=== PATIENT | female | born 1945 | race Caucasian/White ===

== ENCOUNTER 2017-01-29 09:55 | Observation (INO) | payer MEDICARE, OTHER ==
[~2017-01-29] VITALS: Ht 170.2 cm; Wt 58.9 kg
[2017-01-29] MEDS ORDERED: ZOLO100T PO (10:08)
[2017-01-29] MEDS ORDERED: ZYRT10CA PO (10:08)
[2017-01-29] MEDS ORDERED: FLON1SPR (10:08)
[2017-01-29] MEDS ORDERED: CALC600T21 PO (10:08)
[2017-01-29] MEDS ORDERED: LEVO50TA5 PO (10:08)
[2017-01-29 10:53] LABS: BASO # 0.1 K/mm3 (0.0-0.2); BASO % 1.8 % (0.0-1.0); EOS # 0.1 K/mm3 (0.0-0.50); EOS % 3.2 % (0.0-3.0); LARGE UNSTAINED CELL # 0.1 K/mm3 (0.0-0.4); LARGE UNSTAINED CELL % 3.2 % (0.0-4.0); LYMPH # 1.6 K/mm3 (1.5-4.5); LYMPH % 38.1 % (24.0-44.0); MEAN CORPUSCULAR HEMOGLOBIN 30.1 pg (27.0-33.0); MEAN CORPUSCULAR HGB CONC 32.2 g/dl (32.0-36.5); MEAN CORPUSCULAR VOLUME 93.5 fl (80.0-96.0); MONO # 0.3 K/mm3 (0.0-0.8); MONO % 7.3 % (0.0-5.0); NEUTROPHILS # 1.8 K/mm3 (1.8-7.7); NEUTROPHILS % 46.4 % (36.0-66.0); PLATELET COUNT, AUTOMATED 327 k/mm3 (150-450); RED CELL DISTRIBUTION WIDTH 12.6 % (11.5-14.5); WHITE BLOOD COUNT 3.9 K/mm3 (4.0-10.0)
[2017-01-29 10:58] LABS: INR 1.04
[2017-01-29 11:09] LABS: ANION GAP 5 MEQ/L (8-16); BLOOD UREA NITROGEN 18 MG/DL (7-18); CARBON DIOXIDE LEVEL 28 MEQ/L (21-32); CHLORIDE LEVEL 107 MEQ/L (98-107); CREATININE FOR GFR 0.82 MG/DL (0.55-1.02); FREE T4 0.79 NG/DL (0.76-1.46); GLOMERULAR FILTRATION RATE > 60.0 (>45); GLUCOSE, FASTING 93 MG/DL (80-110); POTASSIUM SERUM 4.4 MEQ/L (3.5-5.1); SODIUM LEVEL 140 MEQ/L (136-145)
--- NOTE | 2017-01-29 11:19 | REP ---
Noncontrast brain CT: History: CVA. 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 Bone window settings demonstrate an intact bony calvarium. There is mild vascular calcification in the distal carotid arteries bilaterally. There is minimal diffuse cerebral atrophy. There is no evidence of intracranial hemorrhage. Box-white differentiation pattern is normal above and below the tentorium. There is no extra-axial fluid collection, evidence of infarction, or midline shift. Impression: Mild vascular calcification and minimal diffuse atrophy. No acute intracranial abnormality. Signed by Luis E Mosley MD 01/29/2017 12:59 P
--- NOTE | 2017-01-29 11:24 | REP ---
Portable chest x-ray: Single view. History: CVA. Findings: EKG monitoring electrodes overlie the chest. The lungs are symmetrically aerated and clear. The pleural angles are sharp. Heart size is normal. The aorta is slightly tortuous. There is an old healed rib fracture on the right. Impression: No active disease. Signed by Luis E Mosley MD 01/29/2017 01:00 P
--- NOTE | 2017-01-29 12:51 | REP ---
MR angiography the brain without contrast: History: TIA. Technique: 3-D [id number] MR angiography of the brain is acquired in the usual fashion and maximal intensity projection images were generated in rotational format about the vertical and horizontal axes. In addition, source axial T1-weighted images are viewed in cine mode. MR angiographic findings: The distal vertebral arteries are patent and co-dominant. Basilar artery is a little tortuous but widely patent. The posterior cerebral and superior cerebellar vessels are normal and symmetric. The distal internal carotid arteries are unremarkable. Anterior and middle cerebral arteries appear intact. There is no visible gupta aneurysm or arteriovenous malformation. Impression: Unremarkable MR angiography the brain. Signed by Luis E Mosley MD 01/29/2017 12:42 P
--- NOTE | 2017-01-29 12:52 | REP ---
MRI brain without contrast: History: TIA . Comparison study: Comparison head CT study is from earlier this date. Technique: Axial and sagittal imaging planes are utilized for T1 and T2-weighted scans. Sequences include spin-echo, fast spin echo, FLAIR, and diffusion weighted sequences. MRI findings: No bony calvarial lesion is seen. Craniocervical junction and upper cervical cord are normal in appearance. There is no MR evidence of significant paranasal sinus disease. No intraorbital abnormality is seen. The lateral, third, and fourth ventricles are normal in size and position. There is minimal diffuse atrophy. Box-white differentiation pattern is intact above and below the tentorium. There is no evidence of intracranial hemorrhage. No mass, infarction, extra-axial fluid collection or midline shift is seen. No abnormal white matter lesion is seen. Impression: Minimal diffuse atrophy, otherwise negative noncontrast brain MRI study. Signed by Luis E Mosley MD 01/29/2017 12:43 P
[2017-01-29] MEDS ORDERED: ASPIRIN 325 MG TAB PO ONE (13:45)
[2017-01-29] MEDS ORDERED: BACITAB3 PO (14:07)
[2017-01-29] MEDS ORDERED: BIOT10005 PO (14:07)
[2017-01-29] MEDS ORDERED: CALCTAB43 PO (14:07)
[2017-01-29] MEDS ORDERED: LORA10TA2 PO (14:07)
[2017-01-29 15:17] LABS: CHOLESTEROL LEVEL 241 MG/DL (<200); TRIGLYCERIDES LEVEL 85 MG/DL (<150)
--- NOTE | 2017-01-29 15:30 | HPE ---
DATE OF ADMISSION: 01/29/2017 PRIMARY CARE PROVIDER: Dr. Brady in [place] CHIEF COMPLAINT: Dizziness and double vision. HISTORY OF PRESENT ILLNESS: The patient is a 71-year-old female who came from [place] to [place] for camping. This morning, the patient started having dizziness when the patient was in the restroom. Later, when the patient tried to prepare a meal, she was making eggs in a cake quigley which is not normal for her, and the patient continued to feel dizzy for at least 10 minutes. The was around the whole time. He brought her to the couch for rest and the patient fell asleep immediately for 30-45 minutes. The patient did not have any significant improvement of her symptoms so the brought the patient to [facility] for further evaluation. When the patient was in route, the patient started having double vision and a frontal headache lasting for a few minutes and resolved spontaneously when the patient arrived to the emergency room. The patient described the dizziness as the room is spinning. The patient had a similar episode when the patient had severe allergy symptoms. ALLERGIES: SEASONAL ALLERGIES. PAST MEDICAL HISTORY: 1. Hypothyroidism from partial thyroidectomy. 2. 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 3. Recurrent diverticulitis (on average occurs monthly). PAST SURGICAL HISTORY: 1. Partial thyroidectomy. 2. Right-sided lumpectomy. SOCIAL HISTORY: Denies smoking. The patient drinks wine and hard liquor a few days a week. The patient denies any recreational drug use. The patient is a full code. HOME MEDICATIONS: - Biotin 1000 mcg by mouth daily - calcium/vitamin D supplement one tablet by mouth twice a day - Flonase one spray per nostril twice a day - Bacid one tablet by mouth twice a day - Synthroid 50 mcg by mouth daily - loratadine 10 mg by mouth daily as needed for allergies - Zoloft 100 mg by mouth at bedtime REVIEW OF SYSTEMS: GENERAL: No fever. No chills. HEENT: Experienced double vision for a few minutes, resolved spontaneously when patient was driving to [facility]. The patient does complain about sinus fullness from current active allergies. CARDIOVASCULAR: No chest pain. No palpitations. RESPIRATORY: No shortness of breath. No cough. No sputum production. GASTROINTESTINAL: No nausea. No vomiting. No abdominal pain. No diarrhea. MUSCULOSKELETAL: No numbness. No joint pain or muscle pain. NEUROLOGICAL: The patient does have a complaint of frontal sinus headache. The patient also had dizziness in the morning which improved when the patient arrived to the emergency room. OBJECTIVE: VITAL SIGNS: Temperature is 97.8, pulse is 56, respiratory rate 16, blood pressure is 129/74, pulse oximetry is 99% on room air. GENERAL: No sign of acute distress, alert and oriented times three. HEENT: Positive tenderness to palpation of the frontal sinus bilaterally. No maxillary sinus tenderness. Normocephalic, atraumatic. There is some minor swelling in the inferior eyelid. CARDIOVASCULAR: Positive S1, S2. Regular rate. LUNGS: Clear to auscultation bilaterally. ABDOMEN: Soft, nontender, nondistended. Bowel sounds present. No rebound. No guarding. EXTREMITIES: No edema. No cyanosis. NEUROLOGICAL: The patient is able to perform subtracting 7 from 100. The patient is able to remain three objects. Cranial nerves II-XII are grossly intact. Sensation to fine touch grossly intact. Muscle strength 5/5 throughout. LABORATORY DATA: WBC is 3.9, hemoglobin 12.7, hematocrit 39.6, platelet count is 327. Sodium 140, potassium 4.4, chloride 107, carbon dioxide 28, BUN 18, creatinine 0.82, GFR greater than 60, fasting glucose 93, calcium 8, total CK is 104, troponin I is less than 0.02, TSH 2.4, free T4 0.79. PT is 13.7, INR is 1.04. IMAGING STUDIES: CT of the head without contrast shows mild vascular calcification and minimal diffuse atrophy. No acute intracranial abnormality. Chest x-ray shows no active disease. MRA of the brain without contrast shows unremarkable MRA of the brain. MRI of the brain without contrast shows minimal diffuse atrophy. Otherwise negative noncontrast brain MRI study. ASSESSMENT AND PLAN: 1. Dizziness. The patient will be admitted to the progressive care unit (PCU) under observation status. Neurology is consulted. There is a concern for rule out transient ischemic attack (TIA). The patient received aspirin 325 in the emergency room. 2. Frontal sinus tenderness. Possibly due to seasonal allergies. We will try Zyrtec. 3. Depression. Continue with Zoloft. 4. Hypothyroidism from partial thyroidectomy. Continue Synthroid. Thyroid-stimulating hormone (TSH) and free T4 within normal range. 5. Deep vein thrombosis (DVT) prophylaxis. The patient is on heparin.
[2017-01-29 16:00] VITALS: BP 119/98
[2017-01-29] MEDS: THIAMINE 100 MG TAB PO SCH (16:37)
[2017-01-29] MEDS: MULTIVITAMINS/MINERALS THERAP 1 TAB PO SCH (16:37)
[2017-01-29] MEDS: FOLIC ACID 1 MG TAB PO SCH (16:37)
[2017-01-29] MEDS: HEPARIN SOD (PORCINE) 5000 UNITS/ML VIAL SC SCH ×2 (16:38→21:54)
[2017-01-29 17:45] VITALS: BP 139/73
[2017-01-29 18:00] VITALS: BP 139/73
[2017-01-29 20:00] VITALS: BP 132/87
[2017-01-29] MEDS ORDERED: SERTRALINE 100 MG TAB PO SCH (21:00)
[2017-01-29] MEDS: LACTOBACILLUS ACIDOPHILUS CAP (BACID) PO SCH (21:53)
[2017-01-29] MEDS: FLUTICASONE PROP 0.05% NASAL SPRAY 16 GM (FLONASE) SCH (21:53)
[2017-01-29] MEDS: CETIRIZINE (ZyrTEC) 10 MG TAB PO SCH (21:54)
[2017-01-30] VITALS: BP 99/64
[2017-01-30 04:00] VITALS: BP 107/72
[2017-01-30 05:13] LABS: MEAN CORPUSCULAR HEMOGLOBIN 30.6 pg (27.0-33.0); MEAN CORPUSCULAR VOLUME 92.6 fl (80.0-96.0); RED CELL DISTRIBUTION WIDTH 12.6 % (11.5-14.5); WHITE BLOOD COUNT 4.1 K/mm3 (4.0-10.0)
[2017-01-30 05:29] LABS: ANION GAP 6 MEQ/L (8-16); BLOOD UREA NITROGEN 13 MG/DL (7-18); CALCIUM LEVEL 7.7 MG/DL (8.8-10.2); CARBON DIOXIDE LEVEL 26 MEQ/L (21-32); CHLORIDE LEVEL 109 MEQ/L (98-107); GLOMERULAR FILTRATION RATE > 60.0 (>45); GLUCOSE, FASTING 93 MG/DL (80-110); POTASSIUM SERUM 3.8 MEQ/L (3.5-5.1); SODIUM LEVEL 141 MEQ/L (136-145)
[2017-01-30] MEDS: HEPARIN SOD (PORCINE) 5000 UNITS/ML VIAL SC SCH (05:49)
[2017-01-30] MEDS ORDERED: LEVOTHYROXINE 0.05 MG TAB (50 MCG) PO SCH (06:00)
[2017-01-30 08:00] VITALS: BP 114/77
[2017-01-30] MEDS: LACTOBACILLUS ACIDOPHILUS CAP (BACID) PO SCH (08:47)
[2017-01-30] MEDS: CETIRIZINE (ZyrTEC) 10 MG TAB PO SCH (08:47)
[2017-01-30] MEDS: MULTIVITAMINS/MINERALS THERAP 1 TAB PO SCH ×2 (08:48→08:50)
[2017-01-30] MEDS: FOLIC ACID 1 MG TAB PO SCH (08:48)
[2017-01-30] MEDS: THIAMINE 100 MG TAB PO SCH (08:48)
[2017-01-30] MEDS: FLUTICASONE PROP 0.05% NASAL SPRAY 16 GM (FLONASE) SCH (08:48)
[2017-01-30] MEDS ORDERED: ASPIRIN 81 MG ENTERIC TAB PO SCH (09:00)
--- NOTE | 2017-01-30 09:47 | ECGEPIP ---
Stationary ECG Study [facility] - ED Test Date: 2017-01-29 Pat Name: CODI TORREZ Department: Room: - Gender: F Nutrition Manager: JT : 1945 Requested By: Roger Gill Order Number: [id number] Reading MD: Madeleine Yeboah Measurements Intervals Marshall Rate: 56 P: 56 MD: 151 QRS: 32 QRSD: 90 T: 28 QT: 414 QTc: 400 Interpretive Statements SINUS BRADYCARDIA NO PRIOR FOR COMPARISON Electronically Signed On 01-30-2017 9:46:39 EDT by Madeleine Yeboah
[2017-01-30] MEDS ORDERED: ASPI81TAEC PO (10:28)
[2017-01-30] MEDS ORDERED: LIPI20TA PO (10:28)
[2017-01-30] MEDS ORDERED: SALI0.653 (10:28)
[2017-01-30] MEDS ORDERED: ATORVASTATIN 20 MG TAB PO SCH (21:00)
--- NOTE | 2017-01-31 04:44 | DSES ---
DATE OF ADMISSION: 01/29/2017 DATE OF DISCHARGE: 01/30/2017 PRIMARY CARE PROVIDER: Treva Brady. FINAL DIAGNOSIS: Transient ischemic attack (TIA) with lightheadedness and diplopia. HISTORY OF PRESENT ILLNESS: This is a 71-year-old female patient came to [place] from [place] for camping. The morning of admission, patient had started having dizziness when she was in rest room and later the patient tried to prepare for meal, was making egg in a cake quigley, which is not normal for her and she also continued to have dizziness for at least 10 minutes and was around the whole time and brought her to a couch for rest and patient fell asleep immediately for about 30-45 minutes and the patient did not have any significant improvement in her symptom, so the brought the patient to [facility]. En route, patient reported also diplopia, double vision with frontal headache for a few minutes and resolved spontaneously after arriving to the emergency room. Patient baseline is very fit, able to ambulate for miles. Denies any chest pain, pressure or discomfort. HOSPITAL COURSE: Patient admitted to the hospital. Neurology was initially consulted by emergency room. MRI/MRA of the brain was negative. The patient was able to ambulate. Telemetry monitoring was observed. Aspirin was given. Statin was given. Case was discussed with neurologist. Patient can be discharged as per neurologist. Patient able to ambulate. Case discussed with Dr. Rodriguez. Recommended discharging with aspirin, statin. Patient is comfortable. Tolerating oral. Ready for discharge for further care. VITAL SIGNS: Temperature 97.5, pulse 60, respirations 18, blood pressure 114/77, pulse oximetry 97% on room air. LABORATORY: WBC 4.1, hemoglobin and hematocrit 12.4/37.4, platelets 285. Chemistry: Sodium 141, potassium 3.8, chloride 109, bicarbonate 26, BUN 13, creatinine 0.8. DISCHARGE MEDICATIONS: - aspirin 81 mg by mouth daily - Lipitor 20 mg by mouth nightly - saline nasal spray twice a day as needed Patient's home medications: - biotin 1000 mcg by mouth daily - calcium/vitamin D one tablet by mouth twice a day - Flonase nasal spray twice a day - Bacid one tablet by mouth twice a day - Synthroid 50 mcg by mouth daily - loratadine 10 mg by mouth daily as needed - Zoloft 100 mg by mouth nightly DISCHARGE INSTRUCTIONS: Patient is instructed to followup with primary care provider in 7 days. Neurology in 1-2 weeks. Return to the hospital if symptoms worsen. Patient is aware that she is at high risk for CVA given she had symptoms of transient ischemic attack (TIA).
== END 2017-01-30 11:09 | disposition home or self-care (01) ==
LOC: M ED 11:39 → M ED INP 14:34 → M PCU 18:04
PROVIDERS: ADMIT Internal Medicine; ATTEND Hospitalist
DX: G45.9 Transient cerebral ischemic attack, unspecified (principal); R42 Dizziness and giddiness; H53.2 Diplopia; E03.9 Hypothyroidism, unspecified; K57.32 Diverticulitis of large intestine without perforation or abscess without bleeding; Z79.899 Other long term (current) drug therapy
CPT/HCPCS: 36415; 70450; 70544; 70551; 71010; 80048; 80061; 82550; 82553; 84439; 84443; 84484; 85025; 85027; 85610; 85730; 86850; 86900; 86901; 93005; 93041; 94760; 96372; 99285; G0378

== ENCOUNTER → 2019-04-27 | Outpatient (REF) | payer MEDICARE, OTHER ==
[~2019-04-27] MED LIST: ASPI81TAEC PO; BACITAB PO; BIOT10008 PO; CALC600T60 PO; CALCTAB74 PO; FLON1SPR; LEVO50TA5 PO; LIPI20TA PO; LORA10TA3 PO; SALI0.6528; ZOLO100T PO; ZYRT10CA PO
== END ==
LOC: M LAB REF 19:19
PROVIDERS: ATTEND Physician Assistant
DX: N39.0 Urinary tract infection, site not specified (principal)

== ENCOUNTER 2020-06-14 14:58 | Emergency (ER) | payer MEDICARE, OTHER ==
[~2020-06-14] VITALS: Ht 170.2 cm; Wt 63.0 kg
--- NOTE | 2020-06-14 15:57 | REPVR ---
PROCEDURE INFORMATION: Exam: XR Left Elbow Exam date and time: 06/14/2020 3:34 PM Age: 75 years old Clinical indication: Injury or trauma; Fall; Initial encounter; Sprain or strain; Elbow; Left TECHNIQUE: Imaging protocol: XR Left elbow. Views: Frontal, lateral, and oblique views. COMPARISON: No relevant prior studies available. FINDINGS: Bones/joints: Partial avulsion of the distal humeral lateral epicondyle, with mild distraction of a 6.7 mm fragment. Small joint effusion. Soft tissues: Mild lateral and antecubital fossa soft tissue swelling. IMPRESSION: 1. Partial avulsion distal humeral lateral epicondyle. 2. Small joint effusion. Electronically signed by: Saji Marcial On 06/14/2020 15:57:07 PM
--- NOTE | 2020-06-14 15:57 | REPVR ---
PROCEDURE INFORMATION: Exam: XR Left Shoulder Exam date and time: 06/14/2020 3:27 PM Age: 75 years old Clinical indication: Injury or trauma; Fall; Initial encounter; Sprain or strain; Shoulder; Left TECHNIQUE: Imaging protocol: XR Left shoulder. Views: AP internal and external rotation views, and a scapular Y view of the left shoulder. COMPARISON: No relevant prior studies available. FINDINGS: Bones/joints: Normal. Soft tissues: Normal. IMPRESSION: No acute bony injury identified. Electronically signed by: Saji Marcial On 06/14/2020 15:57:36 PM
[2020-06-14] MEDS ORDERED: NORC1TAB7 PO (18:13)
[2020-06-14] MEDS ORDERED: MIRA3350 PO (18:13)
[2020-06-14 18:22] VITALS: BP 114/77
== END 2020-06-14 18:24 | disposition home or self-care (01) ==
LOC: M ED 14:58
DX: S42.442A Displaced fracture (avulsion) of medial epicondyle of left humerus, initial encounter for closed fracture (principal); W10.8XXA Fall (on) (from) other stairs and steps, initial encounter; Y92.9 Unspecified place or not applicable; Y93.9 Activity, unspecified; Y99.9 Unspecified external cause status; Z79.891 Long term (current) use of opiate analgesic; Z79.899 Other long term (current) drug therapy; Z88.8 Allergy status to other drugs, medicaments and biological substances